=== PATIENT | female | born 1975 | race Caucasian/White ===

== ENCOUNTER 2021-06-19 09:52 | Emergency (ER) | payer OTHER ==
[2021-06-19 10:08] VITALS: BP 131/67; PULSE 75; BMI 40.3
[2021-06-19] MEDS ORDERED: ACETAMINOPHEN 325 MG TABLET (FP) PO ONE (10:08)
[2021-06-19] MEDS ORDERED: ACETAMINOPHEN 325 MG TABLET (FP) ONE (11:08)
== END 2021-06-19 11:13 | disposition home or self-care (01) ==
LOC: FER 09:52
DX: M25.561 Pain in right knee (principal); W00.0XXA Fall on same level due to ice and snow, initial encounter
CPT/HCPCS: 73562-TC-RT-FY; 99283-25

== ENCOUNTER 2022-06-09 14:55 | Emergency (ER) | payer OTHER ==
[2022-06-09 15:13] VITALS: BP 137/76; PULSE 92; RESP 18; TEMP 98.2; BMI 38.7
== END 2022-06-09 17:30 | disposition home or self-care (01) ==
LOC: JERFT 14:55
DX: M25.561 Pain in right knee (principal); W01.0XXA Fall on same level from slipping, tripping and stumbling without subsequent striking against object, initial encounter
CPT/HCPCS: 73552-TC-RT-FY; 73564-TC-RT-FY; 73590-TC-RT-FY; 99285-25